=== PATIENT | female | born 1970 | race Caucasian/White ===

== ENCOUNTER → 2023-04-07 08:51 | Outpatient (BNVA) | payer MEDICARE, OTHER, SELFPAY | PROVIDERS: PCP Family Medicine; Visit Provider Family Medicine | DX: Q25.1 Coarctation of aorta (principal); E11.9 Type 2 diabetes mellitus without complications; Z79.899 Other long term (current) drug therapy | CPT/HCPCS: 80053; 80061; 82043; 82607; 83036 ==

== ENCOUNTER 2023-04-25 16:28 | Emergency (ER) | payer MEDICARE, SELFPAY ==
[2023-04-25 16:34] VITALS: BP 188/117; PULSE 126; RESP 16; TEMP 36.7; O2SAT 98; BMI 30.9
--- NOTE | 2023-04-25 16:43 | ED_ITS ---
Documented by User: Heriberto Crawford DO 04/26/23 05:57 HPI - Abdominal Pain 2 General: Chief Complaint: Abdominal Pain Stated Complaint: abd pain with bending over Time Seen by Provider: 04/25/23 16:42 Source: patient Mode of arrival: ambulatory History of Present Illness: 52-year-old female presents emergency ro om with complaint of abdominal pain began suddenly when she bent over while she was cleaning around the house she had difficult time standing up it was transient as pretty much completely resolved by the time she arrives here describes having some residual pain. She denies any dysuria urgency or frequency, vomiting or diarrhea. MD elicited complaint: abdominal pain Onset (ago): minute(s) Pain Consistency: intermittent and now resolved Location: Epigastric and Periumbilical Severity: moderate Quality: cramping and stabbing Radiation: none Exacerbating factors: nothing Relieving factors: nothing Associated Symptoms: Reports bloating and GI cramping; Denies anorexia, belching, change in bowel habits, change in stool character, chills, coffee ground emesis, constipation, diarrhea, dyspepsia, dysuria, excessive flatus, fever(s), heartburn, hematochezia, hematuria, hematemesis, fecal incontinence, loose stools, melena, nausea, poor appetite, syncope and vomiting Review of Systems 2 Const: Denies: fever(s) or chills Card: Denies: chest pain or syncope Resp: Denies: dyspnea GI: Reports: bloating and GI cramping; Denies: abdominal pain, nausea, vomiting, hematemesis, coffee ground emesis, heartburn, diarrhea, constipation, belching, excessive flatus, fecal incontinence, change in bowel habits, change in stool character, hematochezia or melena : Denies: dysuria, urinary frequency, urinary urgency or hematuria Musc: Denies: neck pain or back pain Skin/Breast: Denies: rash PFSH ED 2 PFSH: Medical History Abdominal aortic stenosis Diabetes mellitus Surgical History Hx of colonoscopy [place]- less than 10 years ago Hx of abdominoplasty History of endovascular stent graft for abdominal aortic aneurysm History of total hysterectomy with bilateral salpingo-oophorectomy (BSO) History of 2 sections Family History Mother Chronic kidney disease (CKD) Diabetes mellitus, type 2 Father Heart disease Diabetes mellitus, type 2 Social History Smoking and tobacco/nicotine status: current every day tobacco/nicotine user cigarettes Packs smoked per day: 1 Quit status (tobacco/nicotine): considering quitting Alcohol intake: current Alcohol intake frequency: holidays/special occasions only Substance/Drug Use: never Lives independently: Yes Household members: spouse and children Marital status: Number of children: 2 Current occupational status: disabled Leisure activites: fishing Aubree/Hoahaoism: Congregation Special aubree needs: No Agree to transfusion: Yes Physical Exam 2 Const: GENERAL APPEARANCE: cooperative and comfortable O RIENTATION/CONSCIOUSNESS: Yes awake, Yes oriented to person, Yes oriented to place and Yes oriented to time HENMT: COMMON NORMALS: normocephalic, atraumatic and hearing grossly normal bilaterally HEAD & SCALP: normocephalic and atraumatic Resp: COMMON NORMALS: normal respiratory effort, No retractions, No use of accessory muscles and clear to auscultation bilaterally AUSCULTATION: clear to auscultation bilaterally Cardio: COMMON NORMALS: regular rate, regular rhythm and No murmurs present (Cardio) RATE: regular rate RHYTHM: regular rhythm GI: COMMON NORMALS: Soft to palpation and No hepatosplenomegaly present A USCULTATION: Yes normoactive bowel sounds PALPATION: Yes Soft to palpation, No Tenderness to palpation present (GI), No Guarding due to palpation present (GI) and Yes No hepatosplenomegaly present Extremity: COMMON NORMALS: normal to inspection, capillary refill normal, no clubbing, cyanosis or edema, no calf tenderness and no pedal edema Neuro: SENSORIUM/ORIENTATION: Yes oriented to person, Yes oriented to place and Yes oriented to time Skin: COMMON NORMALS: no rashes or lesions noted GENERAL SKIN EXAM: no rashes or lesions noted Course 2 Vital Signs: Vital signs: Vital Signs Temperature 98.1 F 04/25/23 16:34 Pulse Rate 107 H 04/25/23 18:30 Respiratory Rate 16 04/25/23 18:30 Blood Pressure 138/100 04/25/23 18:30 Pulse Oximetry 96 04/25/23 18:30 Oxygen Delivery Me thod Room Air 04/25/23 18:30 MDM - Abdominal Pain Medical Decision Making Care signed out to Dr. Hutchinson at change of shift. See final notes for diagnosis and disposition. Lab Data 04/25/23 17:05 04/25/23 17:05 Labs/Radiology: Radiology Impressions Abdomen/Pelvis CT 04/25/23 16:53 IMPRESSION: No acute findings. Laboratory Results WBC 8.17 10^3/uL (3.29-11.43) 04/25/23 17:05 RBC 4.68 10^6/uL (3.85-5.65) 04/25/23 17:05 Hgb 14.10 g/dL (11.27-16.99) 04/25/23 17:05 Hct 44.5 % (36-47) 04/25/23 17:05 MCV 95.1 fl (85-98) 04/25/23 17:05 MCH 30.1 pg (27-33) 04/25/23 17:05 MCHC 31.7 g/dL (30-55) 04/25/23 17:05 RDW 13.0 % (12.1-15.1) 04/25/23 17:05 Plt Count 281 10^3/cmm (157-399) 04/25/23 17:05 MPV 9.2 fL (7.4-10.4) 04/25/23 17:05 Neut % (Auto) 57.6 % 04/25/23 17:05 Lymph % (Auto) 31.0 % 04/25/23 17:05 Chilton % (Auto) 8.0 % 04/25/23 17:05 Eos % (Auto) 2.1 % 04/25/23 17:05 Baso % (Auto) 1.1 % 04/25/23 17:05 Neut # (Auto) 4.71 10^3/uL (1.8-7.7) 04/25/23 17:05 Lymph # (Auto) 2.5 10^3/uL (0.8-4.8) 04/25/23 17:05 Chilton # (Auto) 0.7 10^3/uL (0.2-0.9) 04/25/23 17:05 Eos # (Auto) 0.2 10^3/uL (0.0-0.8) 04/25/23 17:05 Baso # (Auto) 0.1 10^3/uL (0.0-0.1) 04/25/23 17:05 Nucleated RBC % (auto) 0 % 04/25/23 17:05 Nucleated RBCs # 0.0 /100WBC 04/25/23 17:05 Sodium 133 mmol/L (136-145) L 04/25/23 17:05 Potassium 3.8 mmol/L (3.5-5.1) 04/25/23 17:05 Chloride 100 mmol/L (98-107) 04/25/23 17:05 Carbon Dioxide 24 mmol/L (22-29) 04/25/23 17:05 Anion Gap 12.8 (5-19) 04/25/23 17:05 BUN 13 mg/dL (6-20) 04/25/23 17:05 Creatinine 0.8 mg/dL (0.5-0.9) 04/25/23 17:05 GFR Calculation 75.3 mL/min (90-130) L 04/25/23 17:05 Glucose 117 mg/dL (65-115) H 04/25/23 17:05 Calculated Osmolality 277 mOsm/kg (285-295) L 04/25/23 17:05 Calcium 9.4 mg/dL (8.5-10.5) 04/25/23 17:05 Total Bilirubin 0.3 mg/dL (0.15-1.2) 04/25/23 17:05 AST 27 U/L (0-32) 04/25/23 17:05 ALT 26 U/L (0-33) 04/25/23 17:05 Alkaline Phosphatase 65 U/L (35-105) 04/25/23 17:05 Total Protein 7.0 g/dL (6.6-8.7) 04/25/23 17:05 Albumin 3.9 g/dL (3.5-5.2) 04/25/23 17:05 Globulin 3.1 g/dL (1.3-4.6) 04/25/23 17:05 Lipase 20 U/L (13-60) 04/25/23 17:05 Urine Color Yellow (Yellow) 04/25/23 18:44 Urine Appearance Clear (CLEAR) 04/25/23 18:44 Urine pH 6 (5-7) 04/25/23 18:44 Ur Specific Griffith 1.010 (1.005-1.030) 04/25/23 18:44 Urine Protein Neg (Negative) 04/25/23 18:44 Urine Glucose (UA) Norm (Normal) 04/25/23 18:44 Urine Ketones Negative (Negative) 04/25/23 18:44 Urine Blood Neg (Negative) 04/25/23 18:44 Urine Nitrate Negative (Negative) 04/25/23 18:44 Urine Bilirubin Neg (Negative) 04/25/23 18:44 Urine Urobilinogen Norm mg/dL (Negative) 04/25/23 18:44 Ur Leukocyte Esterase Negative (Negative) 04/25/23 18:44 Discharge Plan Discharge Patient Disposition: Home Clinical Impression: Abdominal pain Condition: Stable Prescriptions: New ketorolac 10 mg tablet 10 mg PO TID PRN (Reason: pain) Qty: 10 0RF No Action pantoprazole [Protonix] 40 mg tablet,delayed release (DR/EC) 40 mg PO BID 42 Days Qty: 84 1RF atorvastatin 10 mg tablet 10 mg PO DAILY aspirin 81 mg tablet,delayed release (DR/EC) 81 mg PO DAILY fenofibrate micronized 200 mg capsule 200 mg PO DAILY Qty: 90 0RF pantoprazole 40 mg tablet,delayed release (DR/EC) 40 mg PO DAILY Qty: 90 0RF glipizide 5 mg tablet 5 mg PO DAILY Qty: 30 0RF Discharge Orders: Discharge ED (Routine); Ordered 04/25/23 Ordered By: Darrell Hutchinson Referrals: Zahida Urbina MD [Primary Care Provider] - 1-3 days Patient Instructions: Abdominal Pain (ED), Opioid Safety, Pain Management Activity Restrictions/Additional Instructions: Return for worsening abdominal pain, vomiting, fever, any other concerning symptoms. See your doctor this week. Coding Level of Care Code ED [employer] for [employer] Fwd Documented by User: Darrell Hutchinson DO 04/25/23 20:14 HPI - Abdominal Pain 2 General: Chief Complaint: Abdominal Pain Stated Complaint: abd pain with bending over Time Seen by Provider: 04/25/23 16:42 PFSH ED 2 PFSH: Medical History Abdominal aortic stenosis Diabetes mellitus Surgical History Hx of colonoscopy [place]- less than 10 years ago Hx of abdominoplasty History of endovascular stent graft for abdominal aortic aneurysm History of total hysterectomy with bilateral salpingo-oophorectomy (BSO) History of 2 sections Family History Mother Chronic kidney disease (CKD) Diabetes mellitus, type 2 Father Heart disease Diabetes mellitus, type 2 Social History Smoking and tobacco/nicotine status: current every day tobacco/nicotine user cigarettes Packs smoked per day: 1 Quit status (tobacco/nicotine): considering quitting Alcohol intake: current Alcohol intake frequency: holidays/special occasions only Substance/Drug Use: never Lives independently: Yes Household members: spouse and children Marital status: Number of children: 2 Current occupational status: disabled Leisure activites: fishing Aubree/Hoahaoism: Congregation Special aubree needs: No Agree to transfusion: Yes Course 2 Vital Signs: Vital signs: Vital Signs Temperature 98.1 F 04/25/23 16:34 Pulse Rate 107 H 04/25/23 18:30 Respiratory Rate 16 04/25/23 18:30 Blood Pressure 138/100 04/25/23 18:30 Pulse Oximetry 96 04/25/23 18:30 Oxygen Delivery Me thod Room Air 04/25/23 18:30 MDM - Abdominal Pain Medical Decision Making Care signed out to Dr. Hutchinson at change of shift. See final notes for diagnosis and disposition. 52-year-old female checked out to me at shift change by Dr. Crawford. We are awaiting CT results following an injury. Pain is improved. She does have some residual pain, with movement especially. CBC is normal. BMP is not remarkable. Abdominal CT shows no acute findings. With improvement in her symptoms, and normal findings by CT, she will be allowed home. Symptomatic treatment, return for worsening or new symptoms. Lab Data 04/25/23 17:05 04/25/23 17:05 Labs/Radiology: Radiology Impressions Abdomen/Pelvis CT 04/25/23 16:53 IMPRESSION: No acute findings. Laboratory Results WBC 8.17 10^3/uL (3.29-11.43) 04/25/23 17:05 RBC 4.68 10^6/uL (3.85-5.65) 04/25/23 17:05 Hgb 14.10 g/dL (11.27-16.99) 04/25/23 17:05 Hct 44.5 % (36-47) 04/25/23 17:05 MCV 95.1 fl (85-98) 04/25/23 17:05 MCH 30.1 pg (27-33) 04/25/23 17:05 MCHC 31.7 g/dL (30-55) 04/25/23 17:05 RDW 13.0 % (12.1-15.1) 04/25/23 17:05 Plt Count 281 10^3/cmm (157-399) 04/25/23 17:05 MPV 9.2 fL (7.4-10.4) 04/25/23 17:05 Neut % (Auto) 57.6 % 04/25/23 17:05 Lymph % (Auto) 31.0 % 04/25/23 17:05 Chilton % (Auto) 8.0 % 04/25/23 17:05 Eos % (Auto) 2.1 % 04/25/23 17:05 Baso % (Auto) 1.1 % 04/25/23 17:05 Neut # (Auto) 4.71 10^3/uL (1.8-7.7) 04/25/23 17:05 Lymph # (Auto) 2.5 10^3/uL (0.8-4.8) 04/25/23 17:05 Chilton # (Auto) 0.7 10^3/uL (0.2-0.9) 04/25/23 17:05 Eos # (Auto) 0.2 10^3/uL (0.0-0.8) 04/25/23 17:05 Baso # (Auto) 0.1 10^3/uL (0.0-0.1) 04/25/23 17:05 Nucleated RBC % (auto) 0 % 04/25/23 17:05 Nucleated RBCs # 0.0 /100WBC 04/25/23 17:05 Sodium 133 mmol/L (136-145) L 04/25/23 17:05 Potassium 3.8 mmol/L (3.5-5.1) 04/25/23 17:05 Chloride 100 mmol/L (98-107) 04/25/23 17:05 Carbon Dioxide 24 mmol/L (22-29) 04/25/23 17:05 Anion Gap 12.8 (5-19) 04/25/23 17:05 BUN 13 mg/dL (6-20) 04/25/23 17:05 Creatinine 0.8 mg/dL (0.5-0.9) 04/25/23 17:05 GFR Calculation 75.3 mL/min (90-130) L 04/25/23 17:05 Glucose 117 mg/dL (65-115) H 04/25/23 17:05 Calculated Osmolality 277 mOsm/kg (285-295) L 04/25/23 17:05 Calcium 9.4 mg/dL (8.5-10.5) 04/25/23 17:05 Total Bilirubin 0.3 mg/dL (0.15-1.2) 04/25/23 17:05 AST 27 U/L (0-32) 04/25/23 17:05 ALT 26 U/L (0-33) 04/25/23 17:05 Alkaline Phosphatase 65 U/L (35-105) 04/25/23 17:05 Total Protein 7.0 g/dL (6.6-8.7) 04/25/23 17:05 Albumin 3.9 g/dL (3.5-5.2) 04/25/23 17:05 Globulin 3.1 g/dL (1.3-4.6) 04/25/23 17:05 Lipase 20 U/L (13-60) 04/25/23 17:05 Urine Color Yellow (Yellow) 04/25/23 18:44 Urine Appearance Clear (CLEAR) 04/25/23 18:44 Urine pH 6 (5-7) 04/25/23 18:44 Ur Specific Griffith 1.010 (1.005-1.030) 04/25/23 18:44 Urine Protein Neg (Negative) 04/25/23 18:44 Urine Glucose (UA) Norm (Normal) 04/25/23 18:44 Urine Ketones Negative (Negative) 04/25/23 18:44 Urine Blood Neg (Negative) 04/25/23 18:44 Urine Nitrate Negative (Negative) 04/25/23 18:44 Urine Bilirubin Neg (Negative) 04/25/23 18:44 Urine Urobilinogen Norm mg/dL (Negative) 04/25/23 18:44 Ur Leukocyte Esterase Negative (Negative) 04/25/23 18:44 All radiology interpretation(s) finalized by discharge Discharge Plan Discharge Patient Disposition: Home Clinical Impression: Abdominal pain Condition: Stable Prescriptions: New ketorolac 10 mg tablet 10 mg PO TID PRN (Reason: pain) Qty: 10 0RF No Action pantoprazole [Protonix] 40 mg tablet,delayed release (DR/EC) 40 mg PO BID 42 Days Qty: 84 1RF atorvastatin 10 mg tablet 10 mg PO DAILY aspirin 81 mg tablet,delayed release (DR/EC) 81 mg PO DAILY fenofibrate micronized 200 mg capsule 200 mg PO DAILY Qty: 90 0RF pantoprazole 40 mg tablet,delayed release (DR/EC) 40 mg PO DAILY Qty: 90 0RF glipizide 5 mg tablet 5 mg PO DAILY Qty: 30 0RF Discharge Orders: Discharge ED (Routine); Ordered 04/25/23 Ordered By: Darrell Hutchinson Referrals: Zahida Urbina MD [Primary Care Provider] - 1-3 days Patient Instructions: Abdominal Pain (ED), Opioid Safety, Pain Management Activity Restrictions/Additional Instructions: Return for worsening abdominal pain, vomiting, fever, any other concerning symptoms. See your doctor this week. Coding Level of Care Code ED [employer] for Oscar Lopez
--- NOTE | 2023-04-25 16:53 | CTR_ITS ---
PROCEDURE INFORMATION: Exam: CT Abdomen And Pelvis Without Contrast Exam date and time: 04/25/2023 5:10 PM Age: 52 years old Clinical indication: Abdominal pain; Generalized TECHNIQUE: Imaging protocol: Computed tomography of the abdomen and pelvis without contrast. Radiation optimization: All CT scans at this facility use at least one of these dose optimization techniques: automated exposure control; mA and/or kV adjustment per patient size (includes targeted exams where dose is matched to clinical indication); or iterative reconstruction. COMPARISON: No relevant prior studies available. RADIATION DOSE METRICS: Total DLP (mGy-cm): 743.23 FINDINGS: Lungs: Lung bases are clear. No pleural effusion. Liver: Normal. No mass. Gallbladder and bile ducts: Normal. No calcified stones. No ductal dilation. Pancreas: Normal. No ductal dilation. Spleen: Normal. No splenomegaly. Adrenal glands: Normal. No mass. Kidneys and ureters: Normal. No hydronephrosis. Stomach and bowel: Unremarkable. No obstruction. No mucosal thickening. Appendix: No evidence of appendicitis. Intraperitoneal space: Unremarkable. No free air. No significant fluid collection. Vasculature: Unremarkable. No abdominal aortic aneurysm. Lymph nodes: Unremarkable. No enlarged lymph nodes. Urinary bladder: Unremarkable as visualized. Reproductive: Unremarkable as visualized. Bones/joints: Unremarkable. No acute fracture. Soft tissues: Unremarkable. CT/CT abdomen pelvis con [id number] IMPRESSION: No acute findings.
[2023-04-25 17:13] LABS: Basophils # 0.1 10^3/uL (0.0-0.1); Basophils % 1.1 %; Eosinophils # 0.2 10^3/uL (0.0-0.8); Eosinophils % 2.1 %; Hematocrit 44.5 % (36-47); Lymphocytes # 2.5 10^3/uL (0.8-4.8); Mean Corpuscular HGB Conc 31.7 g/dL (30-55); Mean Corpuscular Hemoglobin 30.1 pg (27-33); Mean Corpuscular Volume 95.1 fl (85-98); Mean Platelet Volume 9.2 fL (7.4-10.4); Monocytes # 0.7 10^3/uL (0.2-0.9); Neutrophils # 4.71 10^3/uL (1.8-7.7); Neutrophils % 57.6 %; Nucleated Red Blood Cells % 0 %; Platelet Count 281 10^3/cmm (157-399); Red Blood Count 4.68 10^6/uL (3.85-5.65); White Blood Count 8.17 10^3/uL (3.29-11.43)
[2023-04-25 17:29] LABS: Alanine Aminotransferase 26 U/L (0-33); Albumin Level 3.9 g/dL (3.5-5.2); Alkaline Phosphatase 65 U/L (35-105); Aspartate Amino Transferase 27 U/L (0-32); Blood Urea Nitrogen 13 mg/dL (6-20); Calcium 9.4 mg/dL (8.5-10.5); Carbon Dioxide 24 mmol/L (22-29); Chloride 100 mmol/L (98-107); Globulin 3.1 g/dL (1.3-4.6); Glomerular Filtration Rate 75.3 mL/min (90-130); Glucose 117 mg/dL (65-115); Lipase 20 U/L (13-60); Osmolality Calculated 277 mOsm/kg (285-295); Sodium 133 mmol/L (136-145); Total Bilirubin 0.3 mg/dL (0.15-1.2)
[2023-04-25 17:31] LABS: Anion Gap 12.8 (5-19); Potassium 3.8 mmol/L (3.5-5.1)
[2023-04-25 18:01] VITALS: BP 176/153; PULSE 105; RESP 15; O2SAT 95
[2023-04-25 18:30] VITALS: BP 138/100; PULSE 107; RESP 16; O2SAT 96
[2023-04-25 18:52] LABS: Add Urine Microscopic? NO; Charge for UA Resulting for Rev
[2023-04-25 19:19] LABS: Bilirubin Urine Neg (Negative); Blood Urine Neg (Negative); Glucose Urine UA Norm (Normal); Ketones Urine Negative (Negative); Leukocyte Esterase Urine Negative (Negative); Nitrate Urine Negative (Negative); Protein Urine Neg (Negative); Urine Appearance Clear (CLEAR); Urine Color Yellow (Yellow); Urobilinogen Urine Norm (Negative); pH Urine 6 (5-7)
[2023-04-25] MEDS: ondansetron 4 MG Tablet PO (20:15)
[2023-04-25] MEDS: ketorolac 10 mg Tablet PO (20:15)
== END 2023-04-25 20:19 | disposition home or self-care (01) ==
PROVIDERS: Family Medicine; Emergency Provider Emergency Medicine; PCP Family Medicine
DX: R10.9 Unspecified abdominal pain (principal); E11.9 Type 2 diabetes mellitus without complications; F17.210 Nicotine dependence, cigarettes, uncomplicated; Z79.82 Long term (current) use of aspirin; Z79.84 Long term (current) use of oral hypoglycemic drugs
CPT/HCPCS: 74176; 80053; 81003; 83690; 85025; 99284; Q0162

== ENCOUNTER 2023-05-05 11:42 | Day surgery (SDC) | payer MEDICARE, SELFPAY ==
[2023-05-05 12:01] VITALS: BP 157/107; PULSE 102; RESP 18; TEMP 36.5; O2SAT 96
[2023-05-05] MEDS: sodium chloride 0.9% 1,000 ML 30 ML IV (12:04)
[2023-05-05 12:37] LABS: Glucose Point of Care 117 mg/dL (70-110)
--- NOTE | 2023-05-05 13:01 | ANES.PREANE2 ---
Pre-Anesthetic Assessment Height/Weight: Height 1.63 m Weight 79.379 kg Temp Pulse Resp BP Pulse Ox O2 Del Method 97.7 F 102 H 18 157/107 96 Room Air 05/05/23 12:01 05/05/23 12:01 05/05/23 12:01 05/05/23 12:01 05/05/23 12:01 05/05/23 12:01 Preop Diagnosis: Chronic constipation Operation Date: 05/05/23 12:45 Proposed Procedures p [id number] egd [id number] diagnostic colonoscopy G0105 screen coolon h risk K59.09 , K21.9, K92.1(Not Applicable) - Joao Morel DO s Colonoscopy(Not Applicable) - Joao Morel DO Familial anesthetic complications: Vision issues Was Beta Joey taken within 24 hours: N/A Was Clonidine taken within 24 hours: N/A Last intake: Intake Last Liquid Date 05/04/23 Last Liquid Time 22:00 Last Solid Date 05/03/23 Last Solid Time 20:00 Social Tobacco and No alcohol 1 pack(s) per day 30 pack years Exam alert, oriented x 3, clear to auscultation bilaterally and regular rate & rhythm Airway Submandibular: within normal limits Cervical ROM: within normal limits Mallampati: Class III Dentition: chipped Comments: Comments: 2 fake front teeth History/ROS No significant history except as noted and No significant complaints Pulmonary Exertional Dyspnea CV/HEM Arrythmia, Hypertension and Palpitations AAA repair 2019, last saw cardiovascular surgeon 10 months ago, no issues None reported Hepatic None reported GI Gastroesophageal Reflux Disease (Controlled with meds, no issues this am) Metabolic Diabetes Mellitus and Hyperlipidemia [facility] [place] None reported Neuropsych Anxiety Anesthetic Plan ASA status: 3 Anesthesia: Anesthesia Evaluation, General and MAC Risk of > 500 ml blood loss (7ml/kg in children): No Medications/Allergies Home Medications Medication Instructions Recorded Confirmed Last Taken Type aspirin 81 mg tablet,delayed 81 mg PO DAILY 04/07/23 05/03/23 05/02/23 History release atorvastatin 10 mg tablet 10 mg PO DAILY 04/07/23 05/05/23 05/03/23 History fenofibrate micronized 200 mg 200 mg PO DAILY #90 caps 04/12/23 05/05/23 05/03/23 Rx capsule pantoprazole 40 mg tablet,delayed 40 mg PO BID 6 weeks #84 tabs 04/15/23 05/03/23 05/03/23 Rx release (Protonix) glipizide 5 mg tablet 5 mg PO DAILY #30 tabs 04/19/23 05/03/23 05/02/23 Rx ketorolac 10 mg tablet 10 mg PO TID PRN pain #10 tabs 04/25/23 05/05/23 05/03/23 Rx Allergies Allergy/AdvReac Type Severity Reaction Status Date / Time codeine Allergy Rash Verified 05/03/23 09:01 Current Medications Generic Name Dose Route Start Last Admin Trade Name Freq PRN Reason Stop Dose Admin Sodium Chloride 1,000 mls @ 30 mls/hr 05/05/23 06:30 05/05/23 12:04 Sodium Chloride 0.9% IV 05/06/23 06:29 30 mls/hr .Q24H RENEA Administration PFSH Anesthesia Medical History Abdominal aortic stenosis Diabetes mellitus Surgical History Hx of colonoscopy [place]- less than 10 years ago Hx of abdominoplasty History of endovascular stent graft for abdominal aortic aneurysm History of total hysterectomy with bilateral salpingo-oophorectomy (BSO) History of 2 sections Family History Mother Chronic kidney disease (CKD) Diabetes mellitus, type 2 Father Heart disease Diabetes mellitus, type 2 Social History Smoking and tobacco/nicotine status: current every day tobacco/nicotine user cigarettes Packs smoked per day: 1 Quit status (tobacco/nicotine): considering quitting Alcohol intake: current Alcohol intake frequency: holidays/special occasions only Substance/Drug Use: never Lives independently: Yes Household members: spouse and children Marital status: Number of children: 2 Current occupational status: disabled Leisure activites: fishing Aubree/Gnosticist: [employer] Special aubree needs: No Agree to transfusion: Yes Data Anesthesia Cardiac Studies: No Data to Display
--- NOTE | 2023-05-05 13:31 | W.PM.OPSUD ---
Surgery/Procedure H&P Update DATE OF PROCEDURE: May 05, 2023 DATE H&P PERFORMED: 04/15/23 H&P UPDATE INFORMATION: I have reviewed H&P completed within last 30 days, I have examined patient prior to procedure and No changes to prior documentation PREOP DIAGNOSIS: Chronic constipation PLANNED PROCEDURE: Operation Date: 05/05/23 12:45 Proposed Procedures p [id number] egd [id number] diagnostic colonoscopy G0105 screen coolon h risk K59.09 , K21.9, K92.1(Not Applicable) - Joao Morel DO s Colonoscopy(Not Applicable) - Joao Morel DO
[2023-05-05 13:58] VITALS: BP 121/90; PULSE 100; RESP 16; TEMP 36.1; O2SAT 97
[2023-05-05 14:10] VITALS: BP 112/92; PULSE 90; RESP 18; O2SAT 96
[2023-05-05 14:25] VITALS: BP 114/96; PULSE 93; RESP 18; O2SAT 97
--- NOTE | 2023-05-05 15:03 | ANE.PACU2 ---
Inpatient post-anesthesia follow up: Vital signs: Temperature 97 F Pulse Rate 93 Respiratory Rate 18 Blood Pressure 114/96 Pulse Oximetry 97 Oxygen Delivery Me thod Room Air Oxygen Flow Rate Fraction of Inspir ed Oxygen Hydration adequate: Yes Nausea and vomiting: No Mental status: Baseline Additional Comments: no apparent anesthetic complications noted
== END 2023-05-05 14:51 | disposition home or self-care (01) ==
PROVIDERS: PCP Family Medicine; Visit Provider Surgery
PROC: 0DJ08ZZ Inspection of Upper Intestinal Tract, Via Natural or Artificial Opening Endoscopic (ICD-10-PCS; CPT 43235; principal; 2023-05-05 12:45)
PROC: 0DJD8ZZ Inspection of Lower Intestinal Tract, Via Natural or Artificial Opening Endoscopic (ICD-10-PCS; CPT 45378; 2023-05-05 12:45)
DX: K92.1 Melena (principal); K59.09 Other constipation; K21.9 Gastro-esophageal reflux disease without esophagitis; K29.50 Unspecified chronic gastritis without bleeding; K63.5 Polyp of colon; I10 Essential (primary) hypertension; Z79.82 Long term (current) use of aspirin; E11.9 Type 2 diabetes mellitus without complications; F17.210 Nicotine dependence, cigarettes, uncomplicated
CPT/HCPCS: 36416; 43239; 45385; 82962; 88305; J2704; J7030

== ENCOUNTER → 2023-06-28 10:34 | Outpatient (BNVA) | payer MEDICARE, SELFPAY | PROVIDERS: PCP Family Medicine; Visit Provider Family Medicine | DX: E11.9 Type 2 diabetes mellitus without complications (principal); K92.1 Melena; R79.89 Other specified abnormal findings of blood chemistry; I10 Essential (primary) hypertension; Q25.1 Coarctation of aorta | CPT/HCPCS: 84439; 84443 ==

== ENCOUNTER → 2023-07-29 08:01 | Outpatient (BNVA) | payer MEDICARE, SELFPAY | PROVIDERS: PCP Family Medicine; Visit Provider Family Medicine | DX: E11.9 Type 2 diabetes mellitus without complications (principal); K92.1 Melena; Z79.899 Other long term (current) drug therapy | CPT/HCPCS: 80053; 80061; 82607; 83036; 85025 ==

== ENCOUNTER → 2023-10-03 12:05 | Outpatient (BNVA) | payer MEDICARE, SELFPAY | PROVIDERS: PCP Family Medicine; Visit Provider Emergency Medicine | DX: R42 Dizziness and giddiness (principal) | CPT/HCPCS: 93005 ==

== ENCOUNTER → 2023-10-28 10:05 | Outpatient (BNVA) | payer MEDICARE, SELFPAY | PROVIDERS: PCP Family Medicine; Visit Provider Family Medicine | DX: E11.9 Type 2 diabetes mellitus without complications (principal) | CPT/HCPCS: 83036 ==

== ENCOUNTER → 2023-11-03 08:40 | Outpatient (BNVA) | payer MEDICARE, SELFPAY | PROVIDERS: PCP Family Medicine; Visit Provider Family Medicine | DX: R41.3 Other amnesia (principal) | CPT/HCPCS: 80053; 82607; 82747; 84443; 85025; 86592 ==

== ENCOUNTER → 2024-02-29 13:31 | Outpatient (BNVA) | payer MEDICARE, SELFPAY | PROVIDERS: PCP Family Medicine; Visit Provider Nurse Practitioner | DX: J10.1 Influenza due to other identified influenza virus with other respiratory manifestations (principal) | CPT/HCPCS: 87400; 87426 ==

== ENCOUNTER → 2024-03-27 10:15 | Outpatient (BNVA) | payer MEDICARE, SELFPAY | PROVIDERS: PCP Family Medicine; Visit Provider Family Medicine | DX: E11.9 Type 2 diabetes mellitus without complications (principal) | CPT/HCPCS: 80053; 80061; 83036 ==

== ENCOUNTER 2024-05-25 12:11 | Emergency (ER) | payer MEDICARE, SELFPAY ==
--- NOTE | 2024-05-25 12:13 | XR_ITS ---
WS: [id number] Exam: XR chest 1V portable [id number] Date/Time of Exam: 05/25/2024 1:38 PM Reason For Exam: dizzy No priors. Lungs are fully expanded and clear. Normal cardiomediastinal silhouette and regional bony elements. Calcified granuloma in the RIGHT lung base. XR/XR chest 1V portable [id number] IMPRESSION: 1. Negative chest.
--- NOTE | 2024-05-25 12:14 | ECG_ITS ---
[email or web address] Test Date: 2024-05-25 Pat Name: Angela Bazzi Department: Room: Gender: Female Clinical Resource Manager: : 1970 Requested By: Amanda Haider Order Number: [id number] Staci MD: Evelin Acuna M.D. Measurements Intervals Prospect Rate: 79 P: 52 WV: 136 QRS: 66 QRSD: 86 T: 76 QT: 352 QTc: 404 Interpretive Statements SINUS RHYTHM No previous ECG available for comparison Electronically Signed On 05-25-2024 22:20:01 CDT by Evelin Acuna M.D. [email or web address]
[2024-05-25 12:18] VITALS: BP 132/78; PULSE 102; RESP 18; TEMP 36.6; O2SAT 94; BMI 28.3
[2024-05-25 12:51] LABS: Basophils # 0.1 10^3/uL (0.0-0.1); Eosinophils # 0.2 10^3/uL (0.0-0.8); Eosinophils % 2.2 %; Hematocrit 46.7 % (36-47); Lymphocytes # 2.8 10^3/uL (0.8-4.8); Lymphocytes % 31.9 %; Mean Corpuscular HGB Conc 32.8 g/dL (30-55); Mean Corpuscular Hemoglobin 29.8 pg (27-33); Mean Platelet Volume 9.2 fL (7.4-10.4); Monocytes # 0.6 10^3/uL (0.2-0.9); Monocytes % 6.4 %; Neutrophils # 5.13 10^3/uL (1.8-7.7); Neutrophils % 58.3 %; Nucleated Red Blood Cells % 0 %; Platelet Count 276 10^3/cmm (157-399); Red Blood Count 5.13 10^6/uL (3.85-5.65); Red Cell Distribution Width 12.4 % (12.1-15.1)
[2024-05-25 13:08] LABS: Alanine Aminotransferase 19 U/L (0-33); Albumin Level 4.1 g/dL (3.5-5.2); Alkaline Phosphatase 60 U/L (35-105); Anion Gap 14.9 (5-19); Aspartate Amino Transferase 17 U/L (0-32); Blood Urea Nitrogen 12 mg/dL (6-20); Calcium 9.1 mg/dL (8.5-10.5); Carbon Dioxide 24 mmol/L (22-29); Chloride 104 mmol/L (98-107); Globulin 2.8 g/dL (1.3-4.6); Glomerular Filtration Rate 87.2 mL/min (90-130); Glucose 215 mg/dL (65-115); Osmolality Calculated 294 mOsm/kg (285-295); Potassium 3.9 mmol/L (3.5-5.1); Sodium 139 mmol/L (136-145); Total Bilirubin 0.3 mg/dL (0.15-1.2); Total Protein 6.9 g/dL (6.6-8.7)
--- NOTE | 2024-05-25 13:48 | ED_ITS ---
HPI - Dizziness 2 General: Chief Complaint: Dizziness Stated Complaint: dizziness , no fall , light headed, nausea Time Seen by Provider: 05/25/24 13:29 History of Present Illness: HPI Narrative: 54-year-old female presents emergency ro om with complaints of dizziness. Triggered by her head moving. No chest pain no shortness of breath. She will get some nausea at times but has not had any vomiting. She holds very still she has no symptoms she looks left or right she does have symptoms earlier today she was having symptoms and very briefly had some twitching in her eye and double vision that has not recurred since then Associated symptoms: Denies chest pain or chills Related Data Home Medications ?Medication ?Instructions ?Recorded ?Confirmed clopidogrel 75 mg tablet 75 mg PO DAILY 10/03/2303/02 Previous Rx's ?Medication ?Instructions ?Recorded atorvastatin 10 mg tablet 10 mg PO DAILY #90 tabs 03/02 09/22 blood sugar diagnostic (Blood #200 ea 03/27/24 Glucose Test strips) empagliflozin 10 mg tablet See Rx Instructions .Route 03/27/24 (Jardiance) .COMPLEX #90 tabs glipizide 5 mg tablet See Rx Instructions .Route 0 03/27/24 .COMPLEX #90 tabs lisinopril 5 mg tablet See Rx Instructions .Route 0 03/27/24 .COMPLEX #90 tabs fenofibrate micronized 200 mg See Rx Instructions .Rou te 04/21/24 capsule .COMPLEX #90 caps lorazepam 1 mg tablet (Ativan) 1 mg PO Q6H PRN dizzine ss or 05/25/24 vertigo #14 tabs Allergies Allergy/AdvReac Type Severity Reaction Status Date / Time codeine Allergy Rash Verified 03/27/24 09:54 Review of Systems 2 Const: Denies: fever(s) or chills Card: Denies: chest pain Resp: Denies: dyspnea GI: Denies: abdominal pain : Denies: dysuria, urinary frequency or urinary urgency Musc: Denies: neck pain or back pain Skin/Breast: Denies: rash PFSH ED 2 PFSH: Medical History Hyperlipidemia Hypertension Colon polyp Abdominal aortic stenosis Diabetes mellitus Surgical History Hx of colonoscopy [place]- less than 10 years ago Hx of abdominoplasty History of endovascular stent graft for abdominal aortic aneurysm History of total hysterectomy with bilateral salpingo-oophorectomy (BSO) History of 2 sections Family History Mother Chronic kidney disease (CKD) Diabetes mellitus, type 2 Father Heart disease Diabetes mellitus, type 2 Social History Smoking and tobacco/nicotine status: current every day tobacco/nicotine user cigarettes Packs smoked per day: 1 Quit status (tobacco/nicotine): considering quitting Alcohol intake: current Alcohol intake frequency: holidays/special occasions only Substance/Drug Use: never Lives independently: Yes Household members: spouse and children Marital status: Number of children: 2 Current occupational status: disabled Leisure activites: [employer] Aubree/Mosque: Hoahaoism Special aubree needs: No Agree to transfusion: Yes Physical Exam 2 Const: COMMON NORMALS: no acute distress and patient oriented x3 GENERAL APPEARANCE: cooperative, comfortable and well kempt NUTRITIONAL APPEARANCE: o bese ORIENTATION/CONSCIOUSNESS: Yes awake, Yes oriented to person, Yes oriented to place and Yes oriented to time HENMT: COMMON NORMALS: normocephalic, atraumatic, hearing grossly normal bilaterally, EAC's normal, TM's normal bilaterally and Normal external nose present HEAD & SCALP: normocephalic and atraumatic NOSE: Normal external nose present EXTERNAL AUDITORY CANAL: EAC's normal TYMPANIC MEMBRANE: TM's normal bilaterally MOUTH: Normal oral and palatal mucosa present, lip normal and tongue normal THROAT: posterior oropharynx normal and tonsils normal Eye: COMMON NORMALS: Equal, round and reactive pupils present, EOMs intact bilaterally, conjunctivae normal and no scleral icterus CONJUNCTIVA: Yes conjunctivae normal PUPIL: Yes Equal, round and reactive pupils present Resp: COMMON NORMALS: normal respiratory effort, No retractions, No use of accessory muscles and clear to auscultation bilaterally AUSCULTATION: clear to auscultation bilaterally Cardio: COMMON NORMALS: regular rate, regular rhythm and No murmurs present (Cardio) RATE: regular rate RHYTHM: regular rhythm GI: COMMON NORMALS: Soft to palpation and No hepatosplenomegaly present A USCULTATION: Yes normoactive bowel sounds PALPATION: Yes Soft to palpation, No Tenderness to palpation present (GI), No Guarding due to palpation present (GI) and Yes No hepatosplenomegaly present Extremity: COMMON NORMALS: normal to inspection, capillary refill normal, no clubbing, cyanosis or edema, no calf tenderness and no pedal edema Neuro: COMMON NORMALS: patient oriented x3 SENSORIUM/ORIENTATION: Yes oriented to person, Yes oriented to place and Yes oriented to time Psych: APPEARANCE: Yes well kempt Skin: COMMON NORMALS: no rashes or lesions noted GENERAL SKIN EXAM: no rashes or lesions noted Course 2 Vital Signs: Vital signs: Vital Signs Temperature 98 F 05/25/24 12:18 Pulse Rate 73 05/25/24 14:56 Respiratory Rate 18 05/25/24 12:18 Blood Pressure 138/74 05/25/24 14:57 Pulse Oximetry 96 05/25/24 14:56 Oxygen Delivery Me thod Room Air 05/25/24 12:18 MDM - Dizziness Medical Decision Making Symptoms reproducible labs imaging reviewed no significant findings discharged home on Ativan. I think to brief episode she had where she describes her eye twitching and seeing double vision was a lateral rectal muscle spasms not recurred since then follow-up with primary care if not improving or any worsening of changes symptoms Medical Records I reviewed the patient's medical records. Lab Data I reviewed the patient's lab results. 05/25/24 12:47 05/25/24 12:47 Radiology Impressions Chest X-Ray 05/25/24 12:13 IMPRESSION: 1. Negative chest. Laboratory Results WBC 8.80 10^3/uL (3.29-11.43) 05/25/24 12:47 RBC 5.13 10^6/uL (3.85-5.65) 05/25/24 12:47 Hgb 15.30 g/dL (11.27-16.99) 05/25/24 12:47 Hct 46.7 % (36-47) 05/25/24 12:47 MCV 91.0 fl (85-98) 05/25/24 12:47 MCH 29.8 pg (27-33) 05/25/24 12:47 MCHC 32.8 g/dL (30-55) 05/25/24 12:47 RDW 12.4 % (12.1-15.1) 05/25/24 12:47 Plt Count 276 10^3/cmm (157-399) 05/25/24 12:47 MPV 9.2 fL (7.4-10.4) 05/25/24 12:47 Neut % (Auto) 58.3 % 05/25/24 12:47 Lymph % (Auto) 31.9 % 05/25/24 12:47 [place] % (Auto) 6.4 % 05/25/24 12:47 Eos % (Auto) 2.2 % 05/25/24 12:47 Baso % (Auto) 1.0 % 05/25/24 12:47 Neut # (Auto) 5.13 10^3/uL (1.8-7.7) 05/25/24 12:47 Lymph # (Auto) 2.8 10^3/uL (0.8-4.8) 05/25/24 12:47 [place] # (Auto) 0.6 10^3/uL (0.2-0.9) 05/25/24 12:47 Eos # (Auto) 0.2 10^3/uL (0.0-0.8) 05/25/24 12:47 Baso # (Auto) 0.1 10^3/uL (0.0-0.1) 05/25/24 12:47 Nucleated RBC % (auto) 0 % 05/25/24 12:47 Nucleated RBCs # 0.0 /100WBC 05/25/24 12:47 Sodium 139 mmol/L (136-145) 05/25/24 12:47 Potassium 3.9 mmol/L (3.5-5.1) 05/25/24 12:47 Chloride 104 mmol/L (98-107) 05/25/24 12:47 Carbon Dioxide 24 mmol/L (22-29) 05/25/24 12:47 Anion Gap 14.9 (5-19) 05/25/24 12:47 BUN 12 mg/dL (6-20) 05/25/24 12:47 Creatinine 0.7 mg/dL (0.5-0.9) 05/25/24 12:47 GFR Calculation 87.2 mL/min (90-130) L 05/25/24 12:47 Glucose 215 mg/dL (65-115) H 05/25/24 12:47 Calculated Osmolality 294 mOsm/kg (285-295) 05/25/24 12:47 Calcium 9.1 mg/dL (8.5-10.5) 05/25/24 12:47 Total Bilirubin 0.3 mg/dL (0.15-1.2) 05/25/24 12:47 AST 17 U/L (0-32) 05/25/24 12:47 ALT 19 U/L (0-33) 05/25/24 12:47 Alkaline Phosphatase 60 U/L (35-105) 05/25/24 12:47 Total Protein 6.9 g/dL (6.6-8.7) 05/25/24 12:47 Albumin 4.1 g/dL (3.5-5.2) 05/25/24 12:47 Globulin 2.8 g/dL (1.3-4.6) 05/25/24 12:47 All radiology interpretation(s) finalized by discharge Discharge Plan Discharge Patient Disposition: Home Clinical Impression: Benign paroxysmal positional vertigo Condition: Stable Prescriptions: New lorazepam [Ativan] 1 mg tablet 1 mg PO Q6H PRN (Reason: dizziness or vertigo) Qty: 14 0RF No Action clopidogrel 75 mg tablet 75 mg PO DAILY (DME) Blood Glucose Test Strip See Rx Instructions .MEDSUPPLY Qty: 200 12RF Rx Instructions: Freestyle; Use as directed with glucometer to check blood sugar atorvastatin 10 mg tablet 10 mg PO DAILY Qty: 90 3RF Jardiance 10 mg tablet See Rx Instructions .ROUTE .COMPLEX Qty: 90 3RF Dose Instruction: Take 1 tablet by mouth once daily Rx Instructions: Take 1 tablet by mouth once daily glipizide 5 mg tablet See Rx Instructions .ROUTE .COMPLEX Qty: 90 3RF Dose Instruction: Take 1 tablet by mouth once daily Rx Instructions: Take 1 tablet by mouth once daily lisinopril 5 mg tablet See Rx Instructions .ROUTE .COMPLEX Qty: 90 3RF Dose Instruction: Take 1 tablet by mouth once daily Rx Instructions: Take 1 tablet by mouth once daily fenofibrate micronized 200 mg capsule See Rx Instructions .ROUTE .COMPLEX Qty: 90 0RF Dose Instruction: Take 1 capsule by mouth once daily Rx Instructions: Take 1 capsule by mouth once daily Discharge Orders: Discharge ED (Routine); Ordered 05/25/24 Ordered By: Heriberto Crawford Referrals: Zahida Urbina MD [Primary Care Provider] - Discharge Diet: Usual diet Discharge Activity: Resume usual activity Patient Instructions: Opioid Safety, Pain Management Activity Restrictions/Additional Instructions: Thank you for choosing [facility] for your healthcare needs today. It is very important that you follow up as instructed or that you return to the Emergency Department should you have concerns or if your condition changes or worsens in any way. You are seen in the emergency room with complaint of dizziness. Based on your exam suspect you have paroxysmal positional vertigo. The brief episode of double vision he describes sounds like a lateral rectus muscle spasm. You are given Ativan to use as needed follow-up with your primary care doctor if your symptoms persist. Print Language: Slovenian Coding Level of Care Code ED Neurophysiologist for Oscar Lopez
[2024-05-25 14:56] VITALS: BP 144/81; PULSE 73; O2SAT 96
[2024-05-25 14:57] VITALS: BP 138/74
== END 2024-05-25 14:59 | disposition home or self-care (01) ==
PROVIDERS: Emergency Medicine; Emergency Provider Family Medicine; PCP Family Medicine
DX: H81.10 Benign paroxysmal vertigo, unspecified ear (principal); Z79.02 Long term (current) use of antithrombotics/antiplatelets; E11.9 Type 2 diabetes mellitus without complications; E78.5 Hyperlipidemia, unspecified; I10 Essential (primary) hypertension
CPT/HCPCS: 36415; 71045; 80053; 85025; 93005; 99285

== ENCOUNTER → 2024-07-25 15:06 | Outpatient (BNVA) | payer MEDICARE, SELFPAY | PROVIDERS: PCP Family Medicine; Visit Provider Family Medicine | DX: I10 Essential (primary) hypertension (principal); E78.5 Hyperlipidemia, unspecified; E11.9 Type 2 diabetes mellitus without complications; K59.09 Other constipation | CPT/HCPCS: 80053; 80061; 83036; 84443 ==

== ENCOUNTER 2024-07-28 13:01 | Outpatient (CLI) | payer MEDICARE, SELFPAY ==
--- NOTE | 2024-07-28 13:40 | MM_ITS ---
WS: [id number] BILATERAL SCREENING DIGITAL TOMOSYNTHESIS MAMMOGRAM WITH CAD HISTORY: screen breast cancer COMPARISON: None available. Bilateral CC and MLO views with tomosynthesis and synthetic mammography submitted. Computer aided detection analyzed. Breast composition: There are scattered areas of fibroglandular density. No suspicious masses, microcalcifications or architectural distortion. Benign coarse calcifications in each breast. MM/MM scr BI tomosynthesis [id number] IMPRESSION: BI-RADS: 2 - Benign. FOLLOW UP: 1 Year Follow-up
== END 2024-07-28 13:02 | disposition home or self-care (01) ==
PROVIDERS: PCP Family Medicine; Visit Provider Family Medicine
DX: Z12.31 Encounter for screening mammogram for malignant neoplasm of breast (principal); R92.323 Mammographic fibroglandular density, bilateral breasts; R92.1 Mammographic calcification found on diagnostic imaging of breast
CPT/HCPCS: 77063; 77067

== ENCOUNTER 2024-09-28 13:41 | Outpatient (CLI) | payer MEDICARE, SELFPAY ==
--- NOTE | 2024-09-28 14:30 | MR_ITS ---
WS: [id number] MRI BRAIN WITHOUT CONTRAST HISTORY: episodes of confusion COMPARISON: None available. TECHNIQUE: Diffusion imaging, multiplanar T1, T2 and FLAIR imaging obtained. Normal diffusion imaging. No acute infarct. On the FLAIR and T2 sequences there are numerous lesions within the white matter. Some of these contact the corpus callosum. Some of these are ovoid in shape. No hemorrhage associated with these lesions. No infarct. No signal abnormality in the upper cervical cord. No remote or acute infarcts or volume loss. Ventricles and extra-axial spaces are normal. No inferior displacement of cerebellar tonsils. The sella turcica and pituitary gland are unremarkable. Dural venous sinuses and [place] demonstrate no abnormality on this unenhanced studies. Paranasal sinuses: Mucous retention cyst in the floor of the RIGHT maxillary sinus. Mastoid air cells: Normal. Calvarium and scalp: Intact. MR/MR head wo con* [id number] IMPRESSION: 1. No acute infarct or hemorrhage. 2. T2 and FLAIR signal hyperintensities in the supratentorial brain. Some of t hese lesions do contact the corpus callosum. Others are in the subcortical whit e matter distribution and slightly greater number on the RIGHT than the LEFT. D ue to the distribution possibility of demyelinating disease such as multiple sc lerosis or Lyme disease should be considered. 3. No significant volume loss. 4. Normal ventricles.
== END 2024-09-28 13:42 | disposition home or self-care (01) ==
PROVIDERS: PCP Family Medicine; Visit Provider Family Medicine
DX: R41.0 Disorientation, unspecified (principal); R94.02 Abnormal brain scan
CPT/HCPCS: 70551

== ENCOUNTER → 2024-10-17 13:43 | Outpatient (BNVA) | payer MEDICARE, SELFPAY | PROVIDERS: PCP Family Medicine; Visit Provider Family Medicine | DX: R90.89 Other abnormal findings on diagnostic imaging of central nervous system (principal) | CPT/HCPCS: 86618; 86666; 86757 ==

== ENCOUNTER 2025-01-08 11:16 | Outpatient (CLI) | payer MEDICARE, SELFPAY ==
--- NOTE | 2025-01-08 11:29 | MR_ITS ---
WS: [id number] MR CERVICAL SPINE WO/W COMPARISON: None. HISTORY: MULTIPLE SCLEROSIS TECHNIQUE: Sagittal T1, T2 and T2 inversion recovery; axial T2, T2 gradient and fiesta. Post gadolinium imaging with fat saturation technique. FINDINGS:Straightening of the normal cervical lordosis. No high grade central canal narrowing. No enhancing lesions in the cervical cord. No visualized demyelinating lesions. C2-3: Spinal canal and foramen are patent. C3-4: Spinal canal and foramen are patent. C4-5: Mild disc bulge with endplate ridging. Moderate facet arthropathy. Mild LEFT and no significant RIGHT foraminal narrowing. C5-6: Mild disc osteophyte complex with endplate ridging. Mild to moderate facet arthropathy. Spinal canal and foramen are patent. C6-7: Disc osteophyte complex with a tiny shallow central protrusion. Slight effacement of the ventral thecal sac. Mild facet arthropathy. Spinal canal and foramen are patent. C7-T1: Spinal canal and foramen are patent. MR/MR cervical spine wo/w [id number] IMPRESSION: 1. No enhancing lesions within the cervical cord. 2. No significant cord atrophy. 3. No visualized demyelinating lesions. Cord signal appears normal. 4. Mild spondylitic changes with mild disc bulging C5-C6 and C6-C7.
--- NOTE | 2025-01-08 11:29 | MR_ITS ---
WS: [id number] MRI THORACIC SPINE WITH CONTRAST TECHNIQUE: Sagittal T1, T2 and STIR imaging. Axial T2 imaging. Post gadolinium imaging was obtained. CLINICAL INFORMATION: MULTIPLE SCLEROSIS COMPARISON: None. FINDINGS: No visualized enhancing lesions in the thoracic cord. No cord atrophy. Cord signal appears normal considering motion artifact. CSF pulsation artifact in the dorsal spinal canal. Tiny shallow disc protrusions in the mid thoracic spine at T7-T9. Shallow RIGHT paracentral protrusion T12-L1. Adrenal glands are normal. Mild thoracic kyphosis. Moderate facet arthropathy in the lower thoracic spine. MR/MR thoracic spine wo/w [id number] IMPRESSION: 1. No visualized enhancing lesions in the thoracic cord. 2. Some images degraded by motion but no definite visualized demyelinating les ions. 3. No cord atrophy
[2025-01-08] MEDS: gadobenate dimeglumine 20 mL vial IV (12:36)
== END 2025-01-08 11:17 | disposition home or self-care (01) ==
LOC: RAD 11:17
PROVIDERS: PCP Family Medicine; Visit Provider Psychiatry & Neurology Neurology
DX: G35.D Multiple sclerosis, unspecified (principal); R93.7 Abnormal findings on diagnostic imaging of other parts of musculoskeletal system; M51.24 Other intervertebral disc displacement, thoracic region; M12.88 Other specific arthropathies, not elsewhere classified, other specified site; M40.204 Unspecified kyphosis, thoracic region; M50.322 Other cervical disc degeneration at C5-C6 level; M47.812 Spondylosis without myelopathy or radiculopathy, cervical region; M50.121 Cervical disc disorder at C4-C5 level with radiculopathy; M50.323 Other cervical disc degeneration at C6-C7 level
CPT/HCPCS: 72156; 72157